=== PATIENT | male | born 1975 | race Caucasian/White ===

== ENCOUNTER 2016-07-18 22:32 | Emergency (ER) | payer MEDICAID ==
[~2016-07-18] VITALS: Ht 165.1 cm; Wt 65.8 kg
--- NOTE | 2016-07-18 23:29 | PHYS DOC ---
Past Medical History Past Medical History: Arthritis, Asthma, COPD, Hypertension, Hepatitis, Other Additional Past Medical Histor: hep c, Past Surgical History: Other Additional Past Surgical Histo: rt elbow x 13, blood clot from head Alcohol Use: Occasionally Drug Use: Marijuana Adult General Chief Complaint Chief Complaint: SHORTNESS OF BREATH HPI HPI Patient is a 40 year old male who presents with asthma attack. Patient reports he has had a cough for the past week and half. Today he says he has an asthma/ COPD attack, with wheezing and cough. He tried using his albuterol inhaler but ran out. He denies any chest discomfort. No SOB. He was given 2 breathing treatments by EMS en route to the hospital. No other acute complaints. Review of Systems Review of Systems Constitutional: Denies fever or chills Eyes: Denies change in visual acuity or eye pain HENT: Denies nasal congestion or sore throat Respiratory: Cough, wheezing. Denies shortness of breath Cardiovascular: Denies chest pain GI: Denies abdominal pain, nausea, vomiting, bloody stools or diarrhea : Denies dysuria or hematuria Musculoskeletal: Denies back pain or joint pain Integument: Denies rash or skin lesions Neurologic: Denies headache, focal weakness or sensory changes Current Medications Current Medications Current Medications Medications (Trade) Dose Ordered Sig/Alondra Start Time Stop Time Status Last Admin Dose Admin Albuterol/ Ipratropium (Duoneb) 3 ml 1X ONCE 07/18/16 23:55 07/18/16 23:56 DC 07/19/16 00:17 3 ML Levofloxacin (Levaquin) 750 mg 1X ONCE 07/19/16 01:15 07/19/16 01:16 DC 07/19/16 01:28 750 MG Prednisone (Prednisone) 60 mg 1X ONCE 07/18/16 23:55 07/18/16 23:56 DC 07/19/16 00:10 60 MG Allergies Allergies Allergies Coded Allergies Type Severity Reaction Last Updated Verified aspirin Allergy Unknown 07/18/16 Yes Physical Exam Physical Exam Constitutional: Well developed, well nourished, no acute distress, non-toxic appearance HENT: Normocephalic, atraumatic, bilateral external ears normal Eyes: EOMI, conjunctiva normal, no discharge Neck: Normal range of motion, no stridor Cardiovascular: Heart rate normal, regular rhythm, no murmur Lungs & Thorax: Decreased air movement b/l, minimal end expiratory wheezing Abdomen: Bowel sounds normal, soft, non-distended, no TTP Skin: Warm, dry, no erythema, no rash Extremities: No obvious deformity, no edema Neurologic: Alert and oriented X 3, no gross deficits noted Current Patient Data Vital Signs Vital Signs Date Time Temp Pulse Resp B/P Pulse Ox O2 Delivery O2 Flow Rate FiO2 07/19/16 01:00 107 118/75 92 Room Air 07/18/16 22:35 98.5 22 98.5 EKG EKG EKG (my read): sinus rhythm, rate 99, normal axis, intervals wnl, no acute ischemic changes Radiology/Procedures Radiology/Procedures CXR (my read): Diffuse interstitial lung markings, patchy opacity R lower lung field, chronic clavicle fx Course & Med Decision Making Course & Med Decision Making Pertinent Labs and Imaging studies reviewed. (See chart for details) Patient is 40-year-old male who presents with COPD exacerbation. Already sounds improved after breathing treatments given in ambulance. Will give additional breathing treatment as well as dose of steroids. EKG chest x-ray ordered. EKG okay per my read. Chest x-ray with interstitial lung markings (likely chronic) as well as patchy opacity in R lower lung field. Will treat as community- acquired pneumonia. Dose of Levaquin given in emergency department. Discussed results with patient, who feels symptomatically much better at this time. Patient discharged home with refill for albuterol inhaler, steroid burst, course of Levaquin. Given instructions for close outpatient follow-up and strict return precautions. Dragon Disclaimer Dragon Disclaimer This electronic medical record was generated, in whole or in part, using a voice recognition dictation system. Departure Departure Impression: Primary Impression: COPD exacerbation Disposition: HOME, SELF-CARE Condition: IMPROVED Referrals: NO PCP (PCP) Patient Instructions: Chronic Obstructive Pulmonary Disease Exacerbation Additional Instructions: Thank you for allowing us to provide care today in the Emergency Department. Take the provided medication as directed. Schedule a follow up appointment with your primary care doctor. Return promptly to the Emergency Department if you develop any new or concerning symptoms. Scripts Prednisone 50 Mg Tablet1 Tab PO DAILY #4 TAB start taking 07/19/16 Prov:EMMANUEL FRANCES MD 07/19/16 Albuterol Sulfate (Proair Hfa Inhaler)8.5 Gm Hfa.[id number].[email or web address] Puff INH PRN Q6HRS PRN SHORTNESS OF BREATH #1 INHALER Ref 1 Prov:EMMANUEL FRANCES MD 07/19/16 Levofloxacin (Levaquin)750 Mg Tablet1 Tab PO DAILY #5 TAB Prov:EMMANUEL FRANCES MD 07/19/16 EMMANUEL FRANCES MD Jul 18, 2016 23:29
[2016-07-18] MEDS ORDERED: IPRATRPIUM/ALBUTEROL 0.5/2.5MG 3 ML NEBU. NEB ONE (23:55)
[2016-07-18] MEDS ORDERED: PREDNISONE 10 MG TABLET PO ONE (23:55)
[2016-07-19 01:00] VITALS: BP 118/75
[2016-07-19] MEDS ORDERED: PRED50TA PO (01:11)
[2016-07-19] MEDS ORDERED: LEVO750T31 PO (01:11)
[2016-07-19] MEDS ORDERED: PROAIR HFA8.5 GM INH (01:11)
[2016-07-19] MEDS ORDERED: LEVOFLOXACIN 750 MG TABLET. PO ONE (01:15)
--- NOTE | 2016-07-19 06:27 | EKG ---
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
--- NOTE | 2016-07-19 07:16 | RAD ---
EXAM: Chest, 2 views. HISTORY: Cough. COMPARISON: None. FINDINGS: Frontal and lateral views the chest are obtained. There are mild coarse interstitial markings, likely chronic. There is no consolidation, effusion or pneumothorax. The heart is normal in size. There are healed rib fractures. IMPRESSION: Diffuse coarse increased interstitial markings, chronic in appearance.
== END 2016-07-19 01:31 | disposition home or self-care (01) ==
LOC: ER 22:32
DX: J44.1 Chronic obstructive pulmonary disease with (acute) exacerbation (principal); J45.909 Unspecified asthma, uncomplicated; I10 Essential (primary) hypertension; F12.10 Cannabis abuse, uncomplicated; Z86.19 Personal history of other infectious and parasitic diseases; Z88.6 Allergy status to analgesic agent; Z79.899 Other long term (current) drug therapy
CPT/HCPCS: 71020; 93005; 94250; 94640; 99284; J7512; J7620